=== PATIENT | female | born 1945 | race Two or more races ===

== ENCOUNTER 2023-01-01 05:28 | Day surgery (SDC) | payer OTHER | END 2023-01-01 11:10 | disposition home or self-care (01) | LOC: AMB-ENDOS 05:28 | PROVIDERS: ATTEND Surgery | DX: D12.3 Benign neoplasm of transverse colon (principal); D12.2 Benign neoplasm of ascending colon; K57.30 Diverticulosis of large intestine without perforation or abscess without bleeding; Z20.822 Contact with and (suspected) exposure to COVID-19; K64.8 Other hemorrhoids ==